=== PATIENT | male | born 2000 | race African-American/Black ===

== ENCOUNTER 2019-07-13 14:14 | Emergency (ER) | payer SELFPAY ==
[2019-07-13 14:30] VITALS: BP 119/77
[2019-07-13] MEDS ORDERED: Azithromycin TAB* 250 MG PO ONE (14:58)
--- NOTE | 2019-07-13 15:13 | UC ---
Complaint Male HPI - HPI Summary HPI Summary: PATIENT HERE FOR CHLAMYDIA TREATMENT. HE DENIES ANY SYMPTOMS. STATES HIS GIRLFRIEND TESTED POSITIVE YESTERDAY. - History of Current Complaint Chief Complaint: UCGU Stated Complaint: PRIVATE ISSUE Time Seen by Provider: 07/13/19 14:52 Hx Obtained From: Patient Severity Currently: None Pain Intensity: 0 Pain Scale Used: 0-10 Numeric Associated Signs And Symptoms: Positive: Negative - Allergies/Home Medications Allergies/Adverse Reactions: Allergies Allergy/AdvReac Type Severity Reaction Status Date / Time bee venom protein (honey bee) Allergy Anaphylatic Verified 07/13/19 14:30 Shock Home Medications: Home Medications EPINEPHrine [Epipen 2-Cal] 0.3 mg IM DAILY PRN 07/13/19 [History Confirmed 07/13] PMH/Surg Hx/FS Hx/Imm Hx Previously Healthy: Yes - Surgical History Surgical History: None - Family History Known Family History: Positive: Non-Contributory - Social History Alcohol Use: Rare Substance Use Type: Marijuana Substance Use Comment - Amount & Last Used: daily Smoking Status (MU): Never Smoked Tobacco Review of Systems All Other Systems Reviewed And Are Negative: Yes Constitutional: Positive: Negative Skin: Positive: Negative Respiratory: Positive: Negative Cardiovascular: Positive: Negative Gastrointestinal: Positive: Negative Genitourinary: Positive: Negative Physical Exam Triage Information Reviewed: Yes Appearance: Well-Appearing, No Pain Distress, Well-Nourished Vital Signs: Initial Vital Signs Temp 100.1 F 07/13/19 14:24 Pulse 85 07/13/19 14:24 Resp 16 07/13/19 14:24 BP 119/77 07/13/19 14:24 Pulse Ox 98 07/13/19 14:24 Vital Signs Reviewed: Yes Eyes: Positive: Conjunctiva Clear ENT: Positive: Hearing grossly normal Neck: Positive: Supple Respiratory: Positive: No respiratory distress, No accessory muscle use Cardiovascular: Positive: Pulses Normal Abdomen Description: Positive: Soft Male Genital Exam: Positive: Other - DECLINED Musculoskeletal: Positive: No Edema Neurological: Positive: Alert Psychological: Positive: Age Appropriate Behavior Skin: Negative: Rashes Complaint Male Course/Dx - Course Course Of Treatment: PT TX EMPIRICALLY FOR CHLAMYDIA WITH AZITH 1G PO. PT DECLINES TREATMENT FOR GONORRHEA. DECLINES STD TESTING. ADVISED TO GET TESTED REGULARLY AT [facility]. NO SEX FOR AT LEAST 7 DAYS. - Differential Dx/Diagnosis Provider Diagnosis: STD exposure Discharge ED - Sign-Out/Discharge Documenting (check all that apply): Patient Departure All imaging exams completed and their final reports reviewed: No Studies - Discharge Plan Condition: Stable Disposition: HOME Patient Education Materials: Chlamydia (ED), Sexually Transmitted Diseases (ED) , Safe Sex (ED) Referrals: [facility] [Outside] - If Needed Additional Instructions: YOU HAVE BEEN TREATED FOR CHLAMYDIA TODAY WITH 1 GRAM OF AZITHROMYCIN. NO SEX FOR A MINIMUM OF 7 DAYS. CONSIDER GETTING FULL STD TESTING AT [facility] PERIODICALLY. [facility] Address: [address] [place] [address] CALL THE NUMBER BELOW FOR ASSISTANCE IN ESTABLISHING WITH A PCP An additional resource available to assist in finding the appropriate physician for your health care needs is the [facility] ([facility]). You may contact them by calling [phone]. - Billing Disposition and Condition Condition: STABLE Disposition: Home
== END 2019-07-13 15:11 | disposition home or self-care (01) ==
LOC: UCEAST 14:14
DX: Z20.2 Contact with and (suspected) exposure to infections with a predominantly sexual mode of transmission (principal); Z91.030 Bee allergy status
CPT/HCPCS: 99202; A9270-GY; G0463

== ENCOUNTER 2019-08-12 06:06 | Emergency (ER) | payer SELFPAY ==
[2019-08-12 06:11] VITALS: BP 134/96
[2019-08-12] MEDS ORDERED: Naproxen TAB* 250 MG PO ONE (06:23)
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
== END 2019-08-12 06:37 | disposition home or self-care (01) ==
LOC: ED 06:06
DX: S02.5XXA Fracture of tooth (traumatic), initial encounter for closed fracture (principal); Y04.2XXA Assault by strike against or bumped into by another person, initial encounter; Y92.9 Unspecified place or not applicable
CPT/HCPCS: 99282; A9270-GY